=== PATIENT | male | born 1980 | race Caucasian/White ===

== ENCOUNTER 2023-10-29 09:54 | Emergency (ER) | payer OTHER ==
[~2023-10-29] VITALS: Ht 152.4 cm; Wt 70.8 kg
[2023-10-29 10:21] VITALS: BP 130/83; PULSE 59; RESP 16; TEMP 97.7; O2SAT 96
[2023-10-29 10:33] VITALS: O2SAT 96
[2023-10-29 11:02] LABS: BASOPHILS % (AUTO) 0.4 % (0.0-2.0); EOSINOPHILS # (AUTO) 0.1 K/uL (0-0.4); EOSINOPHILS % (AUTO) 1.7 % (0.0-4.0); HEMATOCRIT 43.3 % (36-52); HEMOGLOBIN 15.4 g/dL (12.0-18.0); LYMPHOCYTES # (AUTO) 1.9 K/uL (2.0-11.5); LYMPHOCYTES % (AUTO) 32.6 % (20.5-51.1); MEAN CORPUSCULAR HEMOGLOBIN 35 pg (27-31); MEAN CORPUSCULAR HGB CONC 36 g/dL (33-37); MEAN CORPUSCULAR VOLUME 96.8 fL (80-94); MONOCYTES # (AUTO) 0.4 K/uL (0.8-1.0); MONOCYTES % (AUTO) 7.6 % (1.7-9.3); NEUTROPHILS # (AUTO) 3.4 K/uL (1.8-7.7); NEUTROPHILS % (AUTO) 57.7 % (42.2-75.2); PLATELET COUNT (AUTO) 228 K/uL (140-450); RED BLOOD CELL COUNT(AUTO) 4.47 MIL/uL (4.20-6.10); RED CELL DISTRIBUTION WIDTH 12.4 % (11.6-13.7); WHITE BLOOD COUNT (AUTO) 5.8 K/uL (4.8-10.8)
[2023-10-29 11:16] LABS: ANION GAP 13.2 (8-16); CALCIUM 8.7 mg/dL (8.5-10.1); CARBON DIOXIDE 24.8 mmol/L (21-32); CREATININE 0.7 mg/dL (0.6-1.3)
[2023-10-29 11:32] LABS: ALANINE AMINOTRANSFERASE 26 U/L (12-78); ALBUMIN 3.5 g/dL (3.4-5.0); ALKALINE PHOSPHATASE 85 U/L (50-136); ASPARTATE AMINOTRANSFERASE 20 U/L (15-37); BILIRUBIN,DIRECT 0.1 mg/dL (0.0-0.3); TOTAL BILIRUBIN 0.5 mg/dL (0.0-1.0); TOTAL PROTEIN, SERUM 8.6 g/dL (6.4-8.2)
[2023-10-29 12:19] VITALS: O2SAT 98
[2023-10-29] MEDS ORDERED: IBUP-2213 PO (14:02)
[2023-10-29 14:31] VITALS: O2SAT 98
[2023-10-29 14:34] VITALS: BP 107/63; PULSE 51; RESP 17; TEMP 98.2; O2SAT 100
== END 2023-10-29 14:34 | disposition home or self-care (01) ==
LOC: MED 09:54
DX: R07.9 Chest pain, unspecified (principal); R42 Dizziness and giddiness; Z79.899 Other long term (current) drug therapy
CPT/HCPCS: 36415; 71045; 80048; 80076; 83880; 84484; 85025; 93005; 99285

== ENCOUNTER 2024-02-07 11:58 | Emergency (ER) | payer OTHER ==
[~2024-02-07] VITALS: Ht 160 cm; Wt 72.6 kg
[~2024-02-07 11:58] MED LIST: IBUP-2213 PO
[2024-02-07 12:06] VITALS: BP 108/70; PULSE 60; RESP 18; TEMP 97.4; O2SAT 99
[2024-02-07] MEDS: KETOROLAC 30 MG/ML VIAL IM ONE (12:35)
[2024-02-07] MEDS ORDERED: METH-1681 PO (12:43)
[2024-02-07] MEDS ORDERED: IBUP-2213 PO (12:43)
[2024-02-07] MEDS ORDERED: LID5T TP (12:43)
[2024-02-07] MEDS ORDERED: METH4TAB1 PO (12:43)
[2024-02-07 13:10] VITALS: BP 110/72; PULSE 70; RESP 16; TEMP 97.7; O2SAT 98
== END 2024-02-07 13:10 | disposition home or self-care (01) ==
LOC: MED 11:58
DX: S39.012A Strain of muscle, fascia and tendon of lower back, initial encounter (principal); M54.16 Radiculopathy, lumbar region; R03.0 Elevated blood-pressure reading, without diagnosis of hypertension; Z79.1 Long term (current) use of non-steroidal anti-inflammatories (NSAID); X58.XXXA Exposure to other specified factors, initial encounter; Y93.89 Activity, other specified; Y92.89 Other specified places as the place of occurrence of the external cause; Y99.8 Other external cause status
CPT/HCPCS: 96372; 99283; J1885